=== PATIENT | male | born 1980 | race Caucasian/White ===

== ENCOUNTER 2017-04-06 15:40 | Emergency (ER) | payer SELFPAY ==
[~2017-04-06] VITALS: Ht 180.3 cm; Wt 89.0 kg
[2017-04-06 18:21] VITALS: BP 116/77
== END 2017-04-06 20:00 | disposition home or self-care (01) ==
LOC: ER 15:40
DX: S50.12XA Contusion of left forearm, initial encounter (principal); X58.XXXA Exposure to other specified factors, initial encounter; Y93.89 Activity, other specified; Y99.8 Other external cause status; Y92.89 Other specified places as the place of occurrence of the external cause; Z96.649 Presence of unspecified artificial hip joint
CPT/HCPCS: 73090; 99284